=== PATIENT | female | born 1955 | race Caucasian/White ===

== ENCOUNTER 2025-03-07 09:30 | Outpatient (CLI) | payer MEDICARE | END 2025-03-07 09:31 | disposition home or self-care (01) | LOC: BICMAMMO 09:30 | PROVIDERS: ATTEND Family Medicine | DX: Z12.31 Encounter for screening mammogram for malignant neoplasm of breast (principal); Z78.0 Asymptomatic menopausal state; Z91.89 Other specified personal risk factors, not elsewhere classified | CPT/HCPCS: 77063; 77067 ==